=== PATIENT | male | born 1995 | race Caucasian/White ===

== ENCOUNTER 2023-01-22 09:56 | Emergency (ER) | payer OTHER, SELFPAY ==
--- NOTE | ~2023-01-22 | XR_ITS ---
EXAMINATION: XR SHOULDER, LEFT CLINICAL INFORMATION: Pain COMPARISON: None available. TECHNIQUE: AP external rotation, Grashey, scapular Y, and axillary views of the left shoulder. 4 views FINDINGS: The bones and soft tissues are normal. No fracture. Glenohumeral and acromioclavicular alignment is anatomic with normal joint space. No abnormal soft tissue calcifications. XR/XR shoulder LT min 2V IMPRESSION: No fracture or dislocation.
[2023-01-22 09:58] VITALS: BP 144/85; PULSE 80; RESP 18; TEMP 36.9; O2SAT 99; BMI 25.2
--- NOTE | 2023-01-22 11:05 | ED.EXTPRO ---
HPI - Extremity Problem General Chief complaint: Extremity Injury, Upper Stated complaint: L shoulder injury/ work injury Time Seen by Provider: 01/22/23 10:46 Source: patient Mode of arrival: ambulatory Limitations: no limitations History of Present Illness HPI Narrative: Patient is a 27-year-old [id number] male presenting to the emergency department with left anterior shoulder pain which began after coming home from work last night. Patient works at [email or web address] and is frequently lifting. States that he took Tylenol and ibuprofen last night with little relief, had difficulty sleeping related to the pain. Denies any radiation of pain down left arm. Denies any numbness or tingling to left arm or hand. Reports decreased range of motion with forward flexion, abduction, and external rotation. Denies any fall or other trauma. MD Complaint: joint pain Onset (ago): hour(s) Pain Consistency: constant Location: left Severity scale (1-10): 9 Quality: aching Radiation: none Relieving factors: rest Exacerbating factors: range of motion and palpation Associated symptoms: denies other symptoms Related Data Previous Rx's Medication Instructions Recorded cyclobenzaprine 5 mg tablet 5 mg PO TID PRN muscle spasm #12 01/22/23 tabs lidocaine 5 % topical patch 1 patch topical DAILY #15 ea 01/22/23 Allergies Allergy/AdvReac Type Severity Reaction Status Date / Time No Known Allergies Allergy Verified 01/22/23 10:03 Review of Systems Review of Systems: As per HPI. Yes all other systems are reviewed and are negative Constitutional: Constitutional: Reports as per HPI [facility] Social History Social History Advance Directives: No Advance Directives Information Provided: No Physical Exam Vital Signs: Vital Signs: Last Vital Signs Temp 98.5 F 01/22/23 09:58 Pulse 80 01/22/23 09:58 Resp 18 01/22/23 09:58 BP 144/85 H 01/22/23 09:58 Pulse Ox 99 01/22/23 09:58 O2 Del Method Room Air 01/22/23 09:58 BMI result Body Mass Index 25.2 Vital signs have been reviewed and appear to be correct. Blood pressure elevated. Heart rate normal. Respiratory rate normal. Temperature normal. Oxygen saturation normal. Const: General: cooperative, healthy appearing and no acute distress Orientation/consciousness: oriented to person, oriented to place, oriented to time and patient oriented x3 Limitations: no limitations HEENT: Head: Yes normocephalic and Yes atraumatic Ears: external ears normal General nose exam: Normal external nose present Face and sinus: Yes face symmetric Mouth: oropharynx normal and moist mucous membranes Throat: Yes uvula midline Eyes: Pupils: Equal, round and reactive pupils present Neck: Neck: Yes normal visual inspection and Yes supple Resp: Effort & Inspection: normal respiratory effort and able to speak in complete sentences Auscultation: clear to auscultation bilaterally Cardio: Rate: regular rate Rhythm: regular rhythm Heart sounds: S1 normal heart sound present and S2 normal heart sound present GI: Palpation (GI): Soft to palpation and nontender Auscultation: normoactive bowel sounds : General: Yes no CVA tenderness Back/Spine/Pelvis: Back: no CVA tenderness Skin: General skin exam: elasticity normal and turgor normal Neuro: General: oriented to person, oriented to place, oriented to time, patient oriented x3, tone normal, moves all extremities, Normal light touch and pain sensation, no focal motor deficits, CN's II-XI intact bilaterally and deep tendon reflexes 2+ bilaterally Cranial nerves: Yes Equal, round and reactive pupils present Cognition (Neuro): normal cognition Motor exam (neuro): 5/5 motor strength present throughout and Normal motor muscle tone present throughout Sensory Exam: Normal double simultaneous stimulation for sensation Extrem: General: Yes full ROM, Yes normal exam except as noted, Yes no pedal edema and Yes no calf tenderness Right upper extremity: normal capillary refill, no joint enlargement, shoulder/upper arm Details: normal to inspection, tenderness Location: of the A-C joint, axillary nerve sensory function normal and abnormal ROM Details: with range as follows (abduction to 90 degrees, forward flexion to 90 degrees, external rotation limited); no swelling and no ecchymosis and Extremity exam: right hand Details: neuromotor exam normal, neurosensory exam normal and vascular exam Details: radial pulse present and normal capillary refill Psych: Mental Status: mental status grossly normal Affect: normal affect Thought process: Normal thought process present Medical Decision Making Medical Decision Making MDM Narrative: Patient is a 27-year-old [id number] male presenting to the emergency department with left anterior shoulder pain which began after coming home from work last night. On exam patient is awake, A+Ox3, VS WNL, afebrile, normal neurological exam without focal deficits, tenderness to anterior left shoulder, limited ROM, neurovascularly intact distally, 5/5 strength. Given reported symptoms and physical exam findings, initial differential includes rotator cuff strain or tendinopathy. Do not suspect tear or adhesive capsulitis. X-ray notable for no acute abnormalities. My interpretation is in agreement with the radiologist's interpretation. Will prescribe cyclobenzaprine and lidocaine patches, advised patient to continue alternating Tylenol and ibuprofen, apply compresses of warm water with Epsom salt as patient does not have bathtub. Instructed patient to follow-up with primary care provider. Will refer patient to Orthopedics for any ongoing symptoms. Return precautions discussed at bedside. Patient verbalized understanding of and agreement with plan. Differential Diagnosis Differential Diagnoses: The differential diagnosis associated with the presentation includes As per MDM. Independent Interpretation I performed an independent interpretation of an: Plain X-Ray Interpretation: No acute abnormalities Radiology Impression Discussion of test interpretation with radiology: I have reviewed the radiologist's reading. Radiologist Impression: XR/XR shoulder LT min 2V IMPRESSION: No fracture or dislocation. External Record Review External record reviewed: Inpatient record, Office record and Outpatient record Prescription Management I considered prescription management with: Pain Medication and Other Discharge Plan Discharge Clinical Impression: Rotator cuff strain Patient Disposition: Home, Self-Care Instructions: Muscle Strain (DC), Rotator Cuff Injury (ED), Exercises for Shoulder Flexion and Extension (ED), Exercises for Internal and External Shoulder Rotation (ED), Exercises for Shoulder Abduction and Adduction (ED) Additional Instructions: You have been evaluated in the emergency department today for left shoulder pain. Your evaluation did not find evidence of medical conditions requiring emergent intervention at this time. Please rest and ice your shoulder, perform gentle stretching exercises several times daily, and resume normal activities as tolerated. We recommend you take 600mg ibuprofen every 6 hours or 650mg Tylenol every 6 hours as needed for pain. If needed you can alternate these medications as they take 1 medication every 3 hours. For instance at noon take ibuprofen, then at 3:00 p.m. take Tylenol, then at 6:00 p.m. take ibuprofen. You are also being prescribed cyclobenzaprine which is a muscle relaxer, you can take this medication every 8 hours as needed. You are being prescribed topical lidocaine patches which you can wear for up to 12 hours in a 24 hour period, do not apply heat directly over the patches. You can also apply compresses of warm water with Epsom salt to your shoulder several times daily. Please schedule an appointment for follow-up with your primary care provider this week. Return to the emergency department if you experience worsening pain, numbness, tingling, change of color in your arm/hand, or any other concerning symptoms. You can follow-up with orthopedics for any symptoms persisting beyond 1-2 weeks. Prescriptions: New cyclobenzaprine 5 mg tablet 5 mg PO TID PRN (Reason: muscle spasm) Qty: 12 0RF lidocaine 5 % adhesive patch,medicated 1 patch topical DAILY Qty: 15 0RF Rx Instructions: leave on most painful area for up to 12 hrs Referrals: [facility] [Provider Group]
== END 2023-01-22 12:34 | disposition home or self-care (01) ==
PROVIDERS: Emergency Provider Student in an Organized Health Care Education/Training Program; PCP Nurse Practitioner Family
DX: S46.012A Strain of muscle(s) and tendon(s) of the rotator cuff of left shoulder, initial encounter (principal); X50.0XXA Overexertion from strenuous movement or load, initial encounter; Y93.89 Activity, other specified; Y92.59 Other trade areas as the place of occurrence of the external cause; Y99.0 Civilian activity done for income or pay
CPT/HCPCS: 73030; 99282; 99283

== ENCOUNTER 2023-01-27 08:21 | Emergency (ER) | payer OTHER, SELFPAY ==
[2023-01-27 08:30] VITALS: BP 128/73; PULSE 78; RESP 12; TEMP 36.8; O2SAT 99; BMI 25.7
--- NOTE | 2023-01-27 08:57 | ED_ITS ---
HPI - Extremity Problem General Chief complaint: Extremity Problem Stated complaint: L shoulder injury/ work related Time Seen by Provider: 01/27/23 08:47 Source: patient Mode of arrival: ambulatory Limitations: no limitations History of Present Illness HPI Narrative: 27-year-old male presents with left shoulder pain. Symptoms started 3-4 days ago. They occurred at work. He was taking a tire off a car any developed left shoulder pain later that day. The pain is in the anterior shoulder. Radiates down his deltoid. There is no numbness, tingling or weakness. Pain is moderate to severe in nature. Denies any fevers or chills or joint swelling. Patient says the pain is achy and sore. Related Data Previous Rx's Medication Instructions Recorded cyclobenzaprine 5 mg tablet 5 mg PO TID PRN muscle spasm #12 01/22/23 tabs lidocaine 5 % topical patch 1 patch topical DAILY #15 ea 01/22/23 naproxen 500 mg tablet 500 mg PO BID #14 tabs 01/27/23 Allergies Allergy/AdvReac Type Severity Reaction Status Date / Time No Known Allergies Allergy Verified 01/22/23 10:03 Review of Systems Review of Systems: CONSTITUTIONAL: Denies weight loss, fever and chills. HEENT: Denies changes in vision and hearing. RESPIRATORY: Denies SOB and cough. CV: Denies palpitations no CP. GI: Denies abdominal pain, nausea, vomiting and diarrhea. : Denies dysuria and urinary frequency. MSK: + myalgia and joint pain. SKIN: Denies rash and pruritus. NEUROLOGICAL: Denies headache and syncope. PSYCHIATRIC: Denies recent changes in mood. Denies anxiety and depression. All other ROS are negative unless in HPI [facility] Social History Social History Advance Directives: No Physical Exam Vital Signs: Vital Signs: Last Vital Signs Temp 98.2 F 01/27/23 08:30 Pulse 78 01/27/23 08:30 Resp 12 01/27/23 08:30 BP 128/73 01/27/23 08:30 Pulse Ox 99 01/27/23 08:30 O2 Del Method Room Air 01/27/23 08:30 BMI result Body Mass Index 25.7 GEN: Well developed, no acute distress, alert, oriented HEENT: Normocephalic, atraumatic, normal external ears, nose appears normal Eyes: Normal to appearance Neck: Supple, no lymphadenopathy Respiratory: Talks in complete sentences, no respiratory distress Extremities: No clubbing cyanosis or edema , tenderness the anterior and lateral shoulder area, no joint swelling. Weakness with abduction, adduction, internal rotation, external rotation, limited range of motion secondary to pain. Neurovascularly intact Neurologic: No focal neurologic deficits, cranial nerves 2-12 intact, gait normal Skin: No rash Medical Decision Making Medical Decision Making MDM Narrative: patient presents with left shoulder pain. This is nontraumatic in nature. There is no indication for imaging at this time does there is unlikely to be a fracture. Patient may have a rotator cuff injury, strain, sprain, spasm. Will recommend patient be visited by Occupational Health for consideration of physical therapy. Will start patient on NSAIDs. Will provided no for 2 days of work cough. Differential Diagnosis Differential Diagnoses: The differential diagnosis associated with the presentation includes ( See above) Prescription Management I considered prescription management with: Pain Medication Discharge Plan Discharge Clinical Impression: Acute pain of left shoulder Patient Disposition: Home, Self-Care Instructions: Shoulder Pain (ED) Prescriptions: New naproxen 500 mg tablet 500 mg PO BID Qty: 14 0RF No Action cyclobenzaprine 5 mg tablet 5 mg PO TID PRN (Reason: muscle spasm) Qty: 12 0RF lidocaine 5 % adhesive patch,medicated 1 patch topical DAILY Qty: 15 0RF Rx Instructions: leave on most painful area for up to 12 hrs Referrals: [facility] [Provider Group]
--- NOTE | 2023-01-27 09:09 | PC.NURSE ---
Discharge plan reviewed with patient who verbalized understanding
== END 2023-01-27 09:09 | disposition home or self-care (01) ==
PROVIDERS: Emergency Provider Emergency Medicine; PCP Nurse Practitioner Family
DX: Z04.2 Encounter for examination and observation following work accident (principal); M25.512 Pain in left shoulder
CPT/HCPCS: 99282; 99283

== ENCOUNTER 2023-04-27 13:52 | Emergency (ER) | payer OTHER, SELFPAY ==
--- NOTE | ~2023-04-27 | XR_ITS ---
EXAMINATION: XR CHEST CLINICAL INFORMATION: Cough and shortness of breath COMPARISON: None available. TECHNIQUE: 2 views of the chest were obtained. FINDINGS: No significant abnormality is noted involving the heart, lungs, mediastinum, bony thorax or soft tissues. There is platelike atelectasis seen in the right upper lobe. XR/XR chest 2V IMPRESSION: No acute intrathoracic disease. Platelike atelectasis right upper lobe.
[2023-04-27 14:10] VITALS: BP 140/76; PULSE 92; RESP 17; TEMP 36.6; O2SAT 97; BMI 27.3
--- NOTE | 2023-04-27 14:10 | ED_ITS ---
HPI - General Adult General Chief complaint: Upper Respiratory Symptoms Stated complaint: Cough, difficulty breathing, headache Time Seen by Provider: 04/27/23 14:21 Source: patient Mode of arrival: ambulatory Limitations: no limitations History of Present Illness HPI narrative: Patient is a 27-year-old male presenting to the emergency department with complaint of shortness of breath and ongoing cough. States symptoms began last or Tuesday with sore throat and nasal congestion. Reports that his sore throat has since resolved but symptoms have progressed to cough and shortness of breath. Denies fevers. States that he was sent home from work today due to coughing. Denies chest pain or palpitations. complaint: Cough and shortness of breath Onset (ago): day(s) Location: chest Relieving factors: rest Exacerbating factors: movement Associated symptoms: denies other symptoms Treatments prior to arrival: none Related Data Previous Rx's Medication Instructions Recorded cyclobenzaprine 5 mg tablet 5 mg PO TID PRN muscle spasm #12 01/22/23 tabs lidocaine 5 % topical patch 1 patch topical DAILY #15 ea 01/22/23 naproxen 500 mg tablet 500 mg PO BID #14 tabs 01/27/23 albuterol sulfate 90 mcg/actuation 2 puff inhalation Q4-6H PRN 04/27/23 aerosol inhaler shortness of breath or wheezing #6.7 grams benzonatate 100 mg capsule 100 mg PO TID PRN cough #20 caps 04/27/23 prednisone 20 mg tablet 40 mg (2 x 20 mg) PO DAILY #10 tabs 04/27/23 Allergies Allergy/AdvReac Type Severity Reaction Status Date / Time No Known Allergies Allergy Verified 04/27/23 14:10 Review of Systems Review of Systems: As per HPI. Yes all other systems are reviewed and are negative Constitutional: Constitutional: Reports as per HPI [facility] Social History Social History Smoked in Last 30 Days: No Use of substances other than those prescribed or required for medical reasons: Yes Substance Use Type: Marijuana Advance Directives: No Advance Directives Information Provided: No Physical Exam ED Vital Signs: Vital Signs - 24 hr 04/27/23 14:10 04/27/23 14:23 Temperature 98 F Pulse Rate 92 89 Respiratory Rate 17 18 Blood Pressure 140/76 H 156/79 H Pulse Oximetry 97 98 Oxygen Delivery Method Room Air Room Air BMI result Body Mass Index 27.3 Vital signs have been reviewed and appear to be correct. Blood pressure elevated. Heart rate normal. Respiratory rate normal. Temperature normal. Oxygen saturation normal. Const General: cooperative, healthy appearing and no acute distress Orientation/consciousness: oriented to person, oriented to place, oriented to time and patient oriented x3 Limitations: no limitations HENMT Head: Yes normocephalic and Yes atraumatic Ears: external ears normal General nose exam: Normal external nose present Face and sinus: Yes face symmetric Mouth: oropharynx normal and moist mucous membranes Throat: Yes uvula midline Eyes Pupils: Equal, round and reactive pupils present Neck Neck: Yes normal visual inspection and Yes supple Resp Effort & Inspection: normal respiratory effort and able to speak in complete sentences Auscultation: clear to auscultation bilaterally and wheezes scattered wheezes Cardio Rate: regular rate Rhythm: regular rhythm Heart sounds: S1 normal heart sound present and S2 normal heart sound present GI Palpation (GI): Soft to palpation and nontender Auscultation: normoactive bowel sounds General: Yes no CVA tenderness Back/Spine/Pelvis Back: no CVA tenderness Skin General skin exam: elasticity normal and turgor normal Neuro General: oriented to person, oriented to place, oriented to time, patient oriented x3, moves all extremities, no focal motor deficits and CN's II-XI intact bilaterally Cranial nerves: Yes Equal, round and reactive pupils present Cognition (Neuro): normal cognition Extrem General: Yes full ROM, Yes no pedal edema and Yes no calf tenderness Psych Mental Status: mental status grossly normal Affect: normal affect Thought process: Normal thought process present Course Course Course Narrative: This is an RME: Additional HPI, ROS, PE not included below will be deferred to primary provider. This is a [id number], with no known medical hx, presenting to the emergency department with a complaint of cough, congestion and SOB x 4 days. Girlfriend is sick with similar symptoms. No history of asthma. Plan: Viral swabs, chest x-ray Medical Decision Making Medical Decision Making MDM Narrative: Patient is a 27-year-old male presenting to the emergency department with complaint of shortness of breath and ongoing cough. On exam patient is awake, A+Ox3, VS WNL, afebrile, normal neurological exam without focal deficits, physical exam findings as above. Given reported symptoms and physical exam findings, initial differential includes viral illness, COVID, flu, RSV, bronchitis, pneumonia. Swab positive for RSV. X-ray notable for no acute disease. My interpretation is in agreement with the radiologist's interpretation. Will treat patient with course of prednisone, benzonatate, albuterol inhaler. Instructed patient to follow-up with primary care provider. Return precautions discussed at bedside. Patient verbalized understanding of and agreement with plan. Differential Diagnosis Differential Diagnoses: The differential diagnosis associated with the presentation includes As per [facility]. Lab Data [facility] Lab Attestation statement: I reviewed the patient's lab results. As per [facility]. Labs: Lab Results 04/27/23 Range/Units 14:26 Influenza Type A (PCR) NEGATIVE (Negative) Influenza Type B (PCR) NEGATIVE (Negative) RSV RNA Qual (PCR) POSITIVE A (Negative) SARS-CoV-2 RNA (RT-PCR) NEGATIVE (Negative) Independent Interpretation I performed an independent interpretation of an: Plain X-Ray Interpretation: No acute disease. Radiology Impression Discussion of test interpretation with radiology: I have reviewed the radiologist's reading. Radiologist Impression: XR/XR chest 2V IMPRESSION: No acute intrathoracic disease. Platelike atelectasis right upper lobe. External Record Review External record reviewed: Inpatient record, Office record and Outpatient record Prescription Management I considered prescription management with: Other Discharge Plan Discharge Clinical Impression: RSV infection Patient Disposition: Home, Self-Care Instructions: Respiratory Syncytial Virus (ED) Additional Instructions: You were evaluated in the emergency department today for cough and shortness of breath. You tested positive for RSV which is a respiratory virus. This virus should resolve on its own with time and rest. You should ensure adequate fluid intake. You are being treated with a short course of steroids to decrease inflammation. You are being prescribed an inhaler which you can use every 4-6 hours as needed for shortness of breath. You are being prescribed cough medicine which you can use every 8 hours as needed. Please follow-up with your primary care provider this week. Return to the emergency department if you develop worsening shortness of breath, difficulty breathing, chest pain, fever not improved with Tylenol or ibuprofen, or any other concerning symptoms. Prescriptions: New prednisone 20 mg tablet 40 mg PO DAILY Qty: 10 0RF benzonatate 100 mg capsule 100 mg PO TID PRN (Reason: cough) Qty: 20 0RF albuterol sulfate 90 mcg/actuation HFA aerosol inhaler 2 puff inhalation Q4-6H PRN (Reason: shortness of breath or wheezing) Qty: 6.7 0RF No Action cyclobenzaprine 5 mg tablet 5 mg PO TID PRN (Reason: muscle spasm) Qty: 12 0RF lidocaine 5 % adhesive patch,medicated 1 patch topical DAILY Qty: 15 0RF Rx Instructions: leave on most painful area for up to 12 hrs naproxen 500 mg tablet 500 mg PO BID Qty: 14 0RF
[2023-04-27 14:23] VITALS: BP 156/79; PULSE 89; RESP 18; O2SAT 98
--- NOTE | 2023-04-27 14:28 | PC.NURSE ---
swabs obtained and sent to lab.
--- NOTE | 2023-04-27 14:33 | PC.NURSE ---
pt to xray at this time
[2023-04-27 15:09] LABS: Influenza A PCR NEGATIVE (Negative); Influenza B PCR NEGATIVE (Negative); Resp Syncy Virus RNA Qual PCR POSITIVE (Negative); SARS COV2 PCR INHOUSE NEGATIVE (Negative)
== END 2023-04-27 15:43 | disposition home or self-care (01) ==
PROVIDERS: Physician Assistant Medical; Emergency Provider Emergency Medicine
DX: J22 Unspecified acute lower respiratory infection (principal); R05.9 Cough, unspecified; R51.9 Headache, unspecified; R06.02 Shortness of breath; Z20.822 Contact with and (suspected) exposure to COVID-19; Z20.828 Contact with and (suspected) exposure to other viral communicable diseases
CPT/HCPCS: 0241U; 71046; 99283; 99284

== ENCOUNTER 2023-11-17 14:11 | Emergency (ER) | payer OTHER, SELFPAY ==
--- NOTE | 2023-11-17 14:25 | ED.GENADULT ---
HPI - General Adult General Chief complaint: Abdominal Pain Stated complaint: Vomiting, dizziness Time Seen by Provider: 11/17/23 17:59 Source: patient Mode of arrival: ambulatory History of Present Illness ED Provider: andreea VIDES narrative: Patient otherwise healthy had Burrito at 19:00 by mid night started having nausea vomiting and diarrhea had about 4 times watery stool and about 8 times no fever no chills no other family member sick no fever no chills feels body ache high generalized abdominal discomfort Related Data Previous Rx's ?Medication ?Instructions ?Recorded cyclobenzaprine 5 mg tablet 5 mg PO TID PRN muscle spasm #12 01/22/23 tabs lidocaine 5 % topical patch 1 patch topical DAILY #15 ea 01/22/23 naproxen 500 mg tablet 500 mg PO BID #14 tabs 01/27/23 albuterol sulfate 90 mcg/actuation 2 puff inhalation Q4-6H PRN 04/27/23 aerosol inhaler shortness of breath or wheezing #6.7 grams benzonatate 100 mg capsule 100 mg PO TID PRN cough #20 caps 04/27/23 prednisone 20 mg tablet 40 mg (2 x 20 mg) PO DAILY #10 tabs 04/27/23 dicyclomine 20 mg tablet 20 mg PO TID #15 tabs 11/17/23 ondansetron 4 mg disintegrating 4 mg PO Q6-8H PRN nausea and 11/17/23 tablet vomiting #10 tabs Allergies Allergy/AdvReac Type Severity Reaction Status Date / Time No Known Allergies Allergy Verified 11/17/23 14:28 Review of Systems Review of Systems: Yes all other systems are reviewed and are negative [facility] Social History Social History Smoked in Last 30 Days: No Use of substances other than those prescribed or required for medical reasons: Yes Substance Use Type: Marijuana Advance Directives: No Advance Directives Information Provided: No Physical Exam ED Vital Signs: Vital Signs - 24 hr 11/17/23 14:26 11/17/23 18:00 11/17/23 19:01 Temperature 97.3 F 99.8 F 98.4 F Pulse Rate 87 81 70 Respiratory Rate 18 18 Blood Pressure 144/56 H 114/59 L Pulse Oximetry 99 97 99 Oxygen Delivery Method Room Air Room Air Room Air 11/17/23 20:15 Temperature 98.4 F Pulse Rate 70 Respiratory Rate 18 Blood Pressure 114/59 L Pulse Oximetry 99 Oxygen Delivery Method Room Air BMI result Body Mass Index 23.0 Appearance: Alert. Oriented X3. No acute distress. Eyes: PERRLA, No Nystagmus ENT: Pharynx normal. Oral Mucosa moist Neck: Normal inspection. Neck supple. CVS: Normal heart rate and rhythm. Pulses normal. Respiratory: No respiratory distress. Equal air entry bilateral, no wheezing/rales/rhonchi Abdomen: Soft and mild diffuse tenderness no rebound tenderness or guarding Bowel sounds are present, no mass palpable, no CVA tenderness Skin: Skin warm and dry. Normal skin color. Normal skin turgor. Extremities: No lower extremity edema. No calf tenderness Neuro: Oriented X 3. No motor deficit. No sensory deficit.No cerebellar signs , cranial nerves II-XII intact Course Course Course Narrative: This is a Rapid Medical Exam performed in triage by Malorie Tucker PA-C. Full HPI, ROS and PE to be performed by primary ED provider. 27 year-old M w/no sig PMHx presenting to the ED c/o abdominal pain w/nausea, vomiting & diarrhea s/p eating burrito yesterday. Reports sx since midnight with inability to tolereate PO or sleep. Also reports some room spinning dizziness. denies others w/similar sx PE: abdomen soft nontender, ambulating with steady gait, appears uncomfortable Plan: EKG, Labs, UA ordered, Zofran given in triage Medications Administered Discontinued Medications Generic Name Dose Route Start Last Admin Trade Name Freq PRN Reason Stop Dose Admin Dicyclomine HCl 20 mg 11/17/23 18:46 11/17/23 19:01 Dicyclomine Hcl 10 Mg Capsule PO 11/17/23 18:47 20 mg ONCE ONE Administration Ondansetron HCl 4 mg 11/17/23 14:30 11/17/23 14:32 Ondansetron Odt 4 Mg Tab.Rapdis TRANSLINGU 11/17/23 14:31 4 mg ONCE ONE Administration Medical Decision Making Medical Decision Making [facility] Narrative: Patient likely had Clostridium perfringens infection which is self-limited improved after p.o. fluids and Zofran better patient home Differential Diagnosis Differential Diagnoses: The differential diagnosis associated with the presentation includes Food poisoning/Clostridium perfringens/gastroenteritis Lab Data [facility] Lab Attestation statement: I reviewed the patient's lab results. 11/17/23 15:18 11/17/23 15:18 Labs: Lab Results 11/17/23 11/17/23 Range/Units 15:18 18:41 WBC 8.4 (4.8-10.8) X10*3/uL RBC 5.29 (4.60-5.80) X10*6/uL Hgb 15.3 (14.0-18.0) g/dl Hct 42.7 (42.0-52.0) % MCV 80.7 (80.0-98.0) fL MCH 28.9 (27.0-33.0) pg MCHC 35.8 (31.0-36.0) g/dl RDW 13.2 (11.0-16.0) % Plt Count 230 (160-400) X10*3/uL MPV 10.0 (9.4-12.4) fL Immature Gran % (Auto) 0.2 (0.0-0.4) % Neut % (Auto) 86.7 H (45-73) % Lymph % (Auto) 9.8 L (20-40) % [place] % (Auto) 3.1 (2-11) % Eos % (Auto) 0.0 (0-4) % Baso % (Auto) 0.2 (0-2) % Lymph # (Auto) 0.8 L (1.2-4.9) X10*3/uL [place] # (Auto) 0.3 (0.1-1.2) X10*3/uL Eos # (Auto) 0.0 (0.0-0.4) X10*3/uL Baso # (Auto) 0.0 (0.0-0.2) X10*3/uL Abs Immat Gran (auto) 0.02 (0.00-0.03) X10*3/uL Absolute Neuts (auto) 7.3 (2.0-8.3) x10*3/uL Absolute Nucleated RBC 0.000 (0.0-0.012) X10*3/uL Nucleated RBC % (auto) 0.0 (0.0-0.2) /100WBC Sodium 139 (135-145) mmol/L Potassium 3.4 (3.3-5.1) mmol/L Chloride 102 (96-108) mmol/L Carbon Dioxide 20 L (22-29) mmol/L Anion Gap 20 (12-20) BUN 18 H (9-16) mg/dL Creatinine 0.97 (0.5-1.4) mg/dL Estim Creat Clear Calc 118.5 Estimated GFR > 60 Random Glucose 131 H (60-115) mg/dL Calcium 10.2 (8.4-10.2) mg/dL Magnesium 1.9 (1.6-2.6) mg/dL Total Bilirubin 1.0 (0.0-1.0) mg/dL Direct Bilirubin 0.3 (0.0-0.5) mg/dL AST 33 (5-37) U/L ALT 36 (0-40) U/L Alkaline Phosphatase 60 (39-117) U/L Total Protein 8.4 H (6.5-8.0) g/dL Albumin 5.3 H (3.5-5.0) g/dL Lipase 23 (8-78) U/L Urine Color Yellow Urine Appearance Clear Urine pH 6.0 (5.0-9.0) Ur Specific [place] >= 1.030 H (1.005-1.025) Urine Protein 300 (3+) H (Neg-Trace) mg/dL Urine Glucose (UA) Negative (Negative) mg/dL Urine Ketones >=160 (Negative) mg/dL Urine Blood Negative (Negative) Urine Nitrite Negative (Negative) Ur Leukocyte Esterase Negative (Negative) Urine RBC 0-2 (0-2) /HPF Urine WBC 0-5 (0-5) /HPF Ur Squamous Epith Cells 0-2 (0-2) /HPF Urine Bacteria None Seen (None Seen) Hyaline Casts 0-2 (0-2) /LPF Discharge Plan Discharge Clinical Impression: Food poisoning due to clostridium perfringens Patient Disposition: Home, Self-Care Instructions: Food Poisoning (ED) Additional Instructions: Drink plenty of fluids Medicine for nausea as prescribed Follow with your PCP if not better Prescriptions: New ondansetron 4 mg tablet,disintegrating 4 mg PO Q6-8H PRN (Reason: nausea and vomiting) Qty: 10 0RF dicyclomine 20 mg tablet 20 mg PO TID Qty: 15 0RF No Action cyclobenzaprine 5 mg tablet 5 mg PO TID PRN (Reason: muscle spasm) Qty: 12 0RF lidocaine 5 % adhesive patch,medicated 1 patch topical DAILY Qty: 15 0RF Rx Instructions: leave on most painful area for up to 12 hrs prednisone 20 mg tablet 40 mg PO DAILY Qty: 10 0RF benzonatate 100 mg capsule 100 mg PO TID PRN (Reason: cough) Qty: 20 0RF albuterol sulfate 90 mcg/actuation HFA aerosol inhaler 2 puff inhalation Q4-6H PRN (Reason: shortness of breath or wheezing) Qty: 6.7 0RF naproxen 500 mg tablet 500 mg PO BID Qty: 14 0RF Stand Alone Forms: Work/School Release Interventions: ED Discharge Assessment Last Done: 11/17/23 20:15 Discharge Date/Time: 11/17/23 20:16 Print Language: Armenian
[2023-11-17 14:26] VITALS: BP 144/56; PULSE 87; RESP 18; TEMP 36.3; O2SAT 99; BMI 23.0
--- NOTE | 2023-11-17 14:30 | ECG_ITS ---
Test Reason : DIZINESS Blood Pressure : / mmHG Vent. Rate : 083 BPM Atrial Rate : 083 BPM P-R Int : 154 ms QRS Dur : 098 ms QT Int : 424 ms P-R-T Axes : 075 052 050 degrees QTc Int : 498 ms Normal sinus rhythm Biatrial enlargement RSR' or QR pattern in V1 suggests right ventricular conduction delay Prolonged QT Abnormal ECG No previous ECGs available Referred By: Malorie Tucker Electronically Signed By:Helder Medina
[2023-11-17] MEDS: Ondansetron ODT 4 MG TAB.RAPDIS TRANSLINGU (14:32)
[2023-11-17 15:22] LABS: MANUAL DIFF FLAG NO
[2023-11-17 15:24] LABS: Basophils Percent Auto 0.2 % (0-2); Hematocrit 42.7 % (42.0-52.0); Hemoglobin 15.3 g/dl (14.0-18.0); Imm Gran Abs Auto 0.02 X10*3/uL (0.00-0.03); Imm Gran Pct Auto 0.2 % (0.0-0.4); Lymphocytes Absolute Auto 0.8 X10*3/uL (1.2-4.9); Lymphocytes Percent Auto 9.8 % (20-40); Mean Corpuscular HGB Conc 35.8 g/dl (31.0-36.0); Mean Corpuscular Hemoglobin 28.9 pg (27.0-33.0); Mean Corpuscular Volume 80.7 fL (80.0-98.0); Monocytes Absolute Auto 0.3 X10*3/uL (0.1-1.2); Monocytes Percent Auto 3.1 % (2-11); Neutrophils Absolute Auto 7.3 x10*3/uL (2.0-8.3); Neutrophils Percent Auto 86.7 % (45-73); Platelet Count 230 X10*3/uL (160-400); Red Blood Count 5.29 X10*6/uL (4.60-5.80); Red Cell Distribution Width 13.2 % (11.0-16.0); White Blood Count 8.4 X10*3/uL (4.8-10.8)
[2023-11-17 15:37] LABS: Alanine Aminotransferase 36 U/L (0-40); Albumin Level 5.3 g/dL (3.5-5.0); Alkaline Phosphatase 60 U/L (39-117); Anion Gap 20 (12-20); Aspartate Amino Transferase 33 U/L (5-37); Bilirubin Direct 0.3 mg/dL (0.0-0.5); Blood Urea Nitrogen 18 mg/dL (9-16); Calcium 10.2 mg/dL (8.4-10.2); Carbon Dioxide 20 mmol/L (22-29); Chloride 102 mmol/L (96-108); Creatinine Clr Calc Pharmacy 118.5; Estimated Glomerular Filt Rate > 60; Glucose Random 131 mg/dL (60-115); Lipase 23 U/L (8-78); Magnesium 1.9 mg/dL (1.6-2.6); Potassium 3.4 mmol/L (3.3-5.1); Sodium 139 mmol/L (135-145); Total Protein 8.4 g/dL (6.5-8.0)
[2023-11-17 18:00] VITALS: BP 114/59; PULSE 81; TEMP 37.7; O2SAT 97
--- NOTE | 2023-11-17 18:41 | PC.NURSE ---
pt po challenged by dr euceda. says he has no pain, and has not vomited since this morning. he says his stomach feels weird
[2023-11-17 18:49] LABS: Appearance Urine Clear; Color Urine Yellow; Glucose Urine UA Negative (Negative); Leukocyte Esterase Urine Negative (Negative); Nitrite Urine Negative (Negative); Specific Gravity - Urine >= 1.030 (1.005-1.025); UMIC TRIGGER UACC YES; Urine Blood Negative (Negative); Urine Ketones >=160 mg/dL (Negative); Urine Protein 300 (3+) mg/dL (Neg-Trace)
[2023-11-17 18:54] LABS: Bacteria Urine None Seen (None Seen); Hyaline Casts Urine 0-2 /LPF (0-2); RBC Urine 0-2 /HPF (0-2); Squamous Epithelial Cell Urine 0-2 /HPF (0-2); WBC Urine 0-5 /HPF (0-5)
[2023-11-17 19:01] VITALS: PULSE 70; RESP 18; TEMP 36.9; O2SAT 99
[2023-11-17] MEDS: Dicyclomine HCl 10 MG CAPSULE 20 MG PO (19:01)
[2023-11-17 20:15] VITALS: BP 114/59; PULSE 70; RESP 18; TEMP 36.9; O2SAT 99
== END 2023-11-17 20:16 | disposition home or self-care (01) ==
PROVIDERS: Physician Assistant; Emergency Provider Internal Medicine
DX: A05 Other bacterial foodborne intoxications, not elsewhere classified (principal); R11.2 Nausea with vomiting, unspecified; R19.7 Diarrhea, unspecified
CPT/HCPCS: 36415; 80048; 80076; 81001; 83690; 83735; 85025; 93005; 99283; 99284

== ENCOUNTER → 2023-11-17 14:30 | Outpatient (BNV) | payer SELFPAY | PROVIDERS: Emergency Provider Internal Medicine; Visit Provider Internal Medicine Cardiovascular Disease | DX: R42 Dizziness and giddiness (principal); I51.7 Cardiomegaly; R94.31 Abnormal electrocardiogram [ECG] [EKG] | CPT/HCPCS: 93010 ==

== ENCOUNTER 2024-09-06 08:24 | Outpatient (REF) | payer BC, SELFPAY ==
[2024-09-06 14:25] LABS: Influenza A PCR NEGATIVE (Negative); Influenza B PCR NEGATIVE (Negative); Resp Syncy Virus RNA Qual PCR NEGATIVE (Negative); SARS COV2 PCR INHOUSE NEGATIVE (Negative)
== END 2024-09-06 08:25 | disposition home or self-care (01) ==
LOC: HO.LAB 08:24
PROVIDERS: Visit Provider Nurse Practitioner Family
DX: J06.9 Acute upper respiratory infection, unspecified (principal)
CPT/HCPCS: 0241U

== ENCOUNTER 2024-09-06 08:24 | Outpatient (AMB) | payer BC, SELFPAY ==
[2024-09-06 08:51] VITALS: BP 110/60; PULSE 70; TEMP 37; O2SAT 98; BMI 23.0
--- NOTE | 2024-09-06 08:51 | AM.OFFWIN_ITS ---
Intake Vital Signs 09/06/24 08:51 Height 5 ft 10 in Weight 160 lb BMI 23.0 BP 110/60 Blood Pressure Location Lt brachial Position Sitting Pulse 70 Pulse Source Pulse Oximeter Temp 98.6 F Temp Source Oral Pulse Oximetry (%) 98 Oxygen Delivery Method Room Air Intake Visit Reasons: EP Fever, cough, congestion Patient Tobacco Use Status: Never used Tobacco Allergies No Known Allergies Allergy (Verified 09/06/24 08:51) Do you need a note to return to daycare/school/sports/work: Yes HPI HPI Comments History of Present Illness Details 28 y/o Male patient who presents to the walk in clinic with c/o URI symptoms since Tuesday. Pt reports Cough, Chest Congestion and Subjective Fevers. [facility] Medical History (Updated 09/06/24 @ 09:17 by Delphine Will NP) Acute respiratory disease Social History Patient Tobacco Use Status: Never used Tobacco Substance Use Type: Marijuana Review of Systems Const All systems reviewed & are unremarkable except as noted in HPI and below Physical Exam Vital Signs: Last Vital Signs Temp 98.6 F 09/06/24 08:51 Pulse 70 09/06/24 08:51 BP 110/60 09/06/24 08:51 Pulse Ox 98 09/06/24 08:51 Oxygen Delivery Method Room Air 09/06/24 08:51 BMI result Body Mass Index 23.0 Const General: no acute distress; No comfortable Orientation/consciousness: patient oriented x3 HEENT Head: Yes normocephalic Ears: external ears normal and TM abnormal bulging and with fluid behind the TM bilateral General nose exam: Normal external nose present and Nasal discharge present Face and sinus: Yes sinuses nontender Mouth: moist mucous membranes Throat: Yes posterior oropharynx normal Resp Effort & Inspection: normal respiratory effort and able to speak in complete sentences Auscultation: clear to auscultation bilaterally, no crackles, no rales, no rhonchi and no wheezes Cardio Rhythm: regular rhythm Heart sounds: S1 normal heart sound present and S2 normal heart sound present Neuro General: patient oriented x3 Assessment & Plan Assessment & Plan (1) Acute respiratory disease: Code(s): J06.9 - Acute upper respiratory infection, unspecified Plan: Ordered SARs OTC cold/cough remedies Acetaminophen for pain relief. Orders: Orders SARS-CoV2/FLU/RSV Today J06.9 - Acute upper respiratory infection, unspecified Medications: New benzonatate 200 mg (2 x 100 mg) PO BID 60 caps 0RF cough J06.9 - Acute upper respiratory infection, unspecified pseudoephedrine HCl ER (Sudafed 12 Hour) 120 mg PO Q12H 30 tabs 0RF Nasal congestion J06.9 - Acute upper respiratory infection, unspecified Discontinued lidocaine 5% leave on most painful area for up to 12 hrs Discontinued Reason: Patient Completed Course 1 patch topical DAILY 15 ea 0RF albuterol sulfate 90 mcg/actuation Discontinued Reason: Patient Completed Course 2 puffs inhalation Q4-6H PRN 6.7 grams 0RF shortness of breath or wheezing benzonatate Discontinued Reason: Patient Completed Course 100 mg PO TID PRN 20 caps 0RF cough cyclobenzaprine Discontinued Reason: Patient Completed Course 5 mg PO TID PRN 12 tabs 0RF muscle spasm naproxen Discontinued Reason: Patient Completed Course 500 mg PO BID 14 tabs 0RF prednisone Discontinued Reason: Patient Completed Course 40 mg (2 x 20 mg) PO DAILY 10 tabs 0RF ondansetron Discontinued Reason: Patient Completed Course 4 mg PO Q6-8H PRN 10 tabs 0RF nausea and vomiting dicyclomine Discontinued Reason: Patient Completed Course 20 mg PO TID 15 tabs 0RF Coding Level of Care Code Est Pt Level 4 (65791) Diagnoses Acute respiratory disease J06.9 Time Spent (min) 20
== END 2024-09-06 10:19 | disposition home or self-care (01) ==
PROVIDERS: Visit Provider Nurse Practitioner Family
DX: J06.9 Acute upper respiratory infection, unspecified (principal)

== ENCOUNTER 2024-11-13 22:59 | Emergency (ER) | payer BC, SELFPAY ==
[2024-11-13 23:26] VITALS: BP 126/48; PULSE 96; RESP 20; TEMP 37.2; O2SAT 100; BMI 24.1
--- NOTE | 2024-11-13 23:29 | ED_ITS ---
HPI - Nausea/Vomiting/Diarrhea General Chief complaint: Nausea/Vomiting/Diarrhea Stated complaint: abd pain/vomiting Time Seen by Provider: 11/14/24 00:04 Source: patient Mode of arrival: ambulatory Limitations: no limitations History of Present Illness ED Provider: Dr. Dang Billy HPI Narrative: Previously healthy 28-year-old male presenting with nausea, vomiting and diarrhea ongoing since yesterday. Patient admits that he ate at a [place] restaurant on Tuesday and subsequently developed nausea vomiting and diarrhea the following morning. Has been unable to keep any food down over the last 24 hours. No hematemesis or hematochezia. No known sick contacts. No other questionable food intake. Denies fever, chest pain or difficulty breathing. Does have some crampy upper abdominal pain that feels like clenching . Had been feeling well prior to this. Related Data Previous Rx's ?Medication ?Instructions ?Recorded benzonatate 100 mg capsule 200 mg (2 x 100 mg) PO BID cough 09/06/24 #60 caps pseudoephedrine HCl 120 mg 120 mg PO Q12H Nasal congestion 09/06/24 tablet,extended release (Sudafed #30 tabs 12 Hour) dicyclomine 20 mg tablet 20 mg PO BID #10 tabs 11/14/24 metoclopramide HCl 10 mg tablet 10 mg PO Q6H PRN nausea and 11/14/24 (Reglan) vomiting #10 tabs Allergies Allergy/AdvReac Type Severity Reaction Status Date / Time No Known Allergies Allergy Verified 11/13/24 23:28 Review of Systems 2 Review of Systems: Yes all other systems are reviewed and are negative PMFSH Past Medical History Attestation statement: The following information was validated with the patient. Medical History (Updated 11/14/24 @ 02:11 by Dang Billy DO) Acute respiratory disease Social History Social History Patient Tobacco Use Status: Never used Tobacco Substance Use Type: Marijuana Advance Directives: No Do you have a plan to hurt others: No Plan Physical Exam 2 Vital Signs: Vital Signs: Last Vital Signs Temp 97.9 F 11/14/24 02:01 Pulse 80 11/14/24 02:01 Resp 20 11/14/24 02:01 BP 115/47 L 11/14/24 02:01 Pulse Ox 97 06/18/25 02:01 O2 Del Method Room Air 11/14/24 02:01 BMI result Body Mass Index 24.1 GENERAL: Ill-Appearing, appears uncomfortable. SKIN: Normal skin color for ethnicity, warm, dry, no rashes noted. HEENT: Normocephalic, atraumatic, no stridor, dry mucous membranes, dentition intact, EOMI, PERRLA. NECK: Soft, supple, full ROM, midline structures nontender, no step-offs, no deformities, no lymphadenopathy. CHEST: Heart regular tachycardia, no murmurs, symmetric chest rise and fall. PULMONARY: Clear to auscultation bilaterally, diminished at the bases, no labored breathing, no wheezes/rhales/rhonchi. ABDOMINAL: Soft, nondistended, nontender, positive bowel sounds in all quadrants. : Deferred. MUSCULOSKELETAL: Normal tone, full range of motion, no deformities, no peripheral edema. NEURO: Alert and oriented x3, CN II through XII intact, equal strength and sensation bilateral upper and lower extremities, no focal neurologic deficits. PSYCHIATRIC: Flat affect, fluid speech, good eye contact and appropriate demeanor. Course Course Course Narrative: 28 yo male with no PMH who notes 2 days of n/v/d he has periumbilical abdominal pain. On Tuesday he went to a [employer] restaurant and the next day he has pain, n/v/d. He denies fevers. He denies black or bloody stools. NO recent travel or abx use. At this time labs and IM reglan ordered. He tried zofran at home with no relief. this is a RAPID medical screening exam the rest of the history and physical exam is to be done by the main provider. TEVIN 11/13/24 1130pm Medications Administered Discontinued Medications Generic Name Dose Route Start Last Admin Trade Name Freq PRN Reason Stop Dose Admin Lactated Ringer's 1,000 mls @ 999 mls/hr 11/13/24 23:58 11/14/24 02:07 Lr IV 11/14/24 00:58 Infused .Q1H1M ONE Infusion Metoclopramide HCl 10 mg 11/13/24 23:28 11/13/24 23:35 Metoclopramide Hcl 10 Mg/2 Ml Vial IM 11/13/24 23:29 10 mg ONCE ONE Administration Medical Decision Making Medical Decision Making [facility] Narrative: Patient presents today with a chief complaint of vomiting. Differential diagnosis includes surgical emergency such as obstruction or enteritis, as well as hyperglycemia, acidosis, food or drug ingestion, pancreatitis, CVA, allergic reaction such as anaphylaxis, cannabis hyperemesis syndrome or cyclic vomiting syndrome, among many others. Patient is not showing signs of acute dehydration or hemodynamic instability. They are having associated abdominal pain. Broad-based work-up was initiated based on above history and physical exam. 2:15 a.m. patient feeling improved after antiemetics, IV fluids. Requesting discharge home. Using shared decision making, plan for discharge home to follow-up with primary care and/or specialist. Patient understands and agrees with plan for discharge. Discharged home in stable condition. Differential Diagnosis Differential Diagnoses: The differential diagnosis associated with the presentation includes ( See above) Admission/Observation Consideration of admission/observation: Escalation of care including admission/observation considered Lab Data [facility] Lab Attestation statement: I reviewed the patient's lab results. 11/13/24 23:37 11/13/24 23:37 Labs: Lab Results 11/13/24 11/13/24 Range/Units 23:36 23:37 WBC 11.7 H (4.8-10.8) X10*3/uL RBC 5.64 (4.60-5.80) X10*6/uL Hgb 16.0 (14.0-18.0) g/dl Hct 44.6 (42.0-52.0) % MCV 79.1 L (80.0-98.0) fL MCH 28.4 (27.0-33.0) pg MCHC 35.9 (31.0-36.0) g/dl RDW 13.4 (11.0-16.0) % Plt Count 225 (160-400) X10*3/uL MPV 10.0 (9.4-12.4) fL Immature Gran % (Auto) 0.3 (0.0-0.4) % Neut % (Auto) 77.5 H (45-73) % Lymph % (Auto) 14.4 L (20-40) % [place] % (Auto) 7.6 (2-11) % Eos % (Auto) 0.0 (0-4) % Baso % (Auto) 0.2 (0-2) % Lymph # (Auto) 1.7 (1.2-4.9) X10*3/uL [place] # (Auto) 0.9 (0.1-1.2) X10*3/uL Eos # (Auto) 0.0 (0.0-0.4) X10*3/uL Baso # (Auto) 0.0 (0.0-0.2) X10*3/uL Abs Immat Gran (auto) 0.03 (0.00-0.03) X10*3/uL Absolute Neuts (auto) 9.0 H (2.0-8.3) x10*3/uL Absolute Nucleated RBC 0.000 (0.0-0.012) X10*3/uL Nucleated RBC % (auto) 0.0 (0.0-0.2) /100WBC Sodium 139 (135-145) mmol/L Potassium 3.5 (3.3-5.1) mmol/L Chloride 103 (96-108) mmol/L Carbon Dioxide 22 (22-29) mmol/L Anion Gap 18 (12-20) BUN 17 H (9-16) mg/dL Creatinine 1.05 (0.5-1.4) mg/dL Estim Creat Clear Calc 98.8 Estimated GFR > 60 Random Glucose 116 H (60-115) mg/dL Calcium 10.3 H (8.4-10.2) mg/dL Magnesium 1.8 (1.6-2.6) mg/dL Total Bilirubin 1.4 H (0.0-1.0) mg/dL Direct Bilirubin 0.4 (0.0-0.5) mg/dL AST 70 H (5-37) U/L ALT 51 H (0-40) U/L Alkaline Phosphatase 64 (39-117) U/L Total Protein 8.1 H (6.5-8.0) g/dL Albumin 5.4 H (3.5-5.0) g/dL Influenza Type A (PCR) NEGATIVE (Negative) Influenza Type B (PCR) NEGATIVE (Negative) RSV RNA Qual (PCR) NEGATIVE (Negative) SARS-CoV-2 RNA (RT-PCR) NEGATIVE (Negative) Discharge Plan Discharge Clinical Impression: Gastroenteritis Patient Disposition: Home, Self-Care Instructions: Gastroenteritis (ED) Prescriptions: New dicyclomine 20 mg tablet 20 mg PO BID Qty: 10 0RF metoclopramide HCl [Reglan] 10 mg tablet 10 mg PO Q6H PRN (Reason: nausea and vomiting) Qty: 10 0RF No Action benzonatate 100 mg capsule 200 mg PO BID Qty: 60 0RF pseudoephedrine HCl [Sudafed 12 Hour] 120 mg tablet extended release 120 mg PO Q12H Qty: 30 0RF Print Language: Bruneian
[2024-11-13] MEDS: Metoclopramide HCl 10 MG/2 ML VIAL IM (23:35)
[2024-11-13 23:41] LABS: MANUAL DIFF FLAG NO
[2024-11-13 23:43] LABS: Basophils Percent Auto 0.2 % (0-2); Hematocrit 44.6 % (42.0-52.0); Imm Gran Abs Auto 0.03 X10*3/uL (0.00-0.03); Imm Gran Pct Auto 0.3 % (0.0-0.4); Lymphocytes Absolute Auto 1.7 X10*3/uL (1.2-4.9); Lymphocytes Percent Auto 14.4 % (20-40); Mean Corpuscular HGB Conc 35.9 g/dl (31.0-36.0); Mean Corpuscular Hemoglobin 28.4 pg (27.0-33.0); Mean Corpuscular Volume 79.1 fL (80.0-98.0); Monocytes Absolute Auto 0.9 X10*3/uL (0.1-1.2); Monocytes Percent Auto 7.6 % (2-11); Neutrophils Percent Auto 77.5 % (45-73); Platelet Count 225 X10*3/uL (160-400); Red Blood Count 5.64 X10*6/uL (4.60-5.80); Red Cell Distribution Width 13.4 % (11.0-16.0); White Blood Count 11.7 X10*3/uL (4.8-10.8)
[2024-11-13 23:58] LABS: Alanine Aminotransferase 51 U/L (0-40); Albumin Level 5.4 g/dL (3.5-5.0); Alkaline Phosphatase 64 U/L (39-117); Anion Gap 18 (12-20); Aspartate Amino Transferase 70 U/L (5-37); Bilirubin Direct 0.4 mg/dL (0.0-0.5); Bilirubin Total 1.4 mg/dL (0.0-1.0); Blood Urea Nitrogen 17 mg/dL (9-16); Calcium 10.3 mg/dL (8.4-10.2); Carbon Dioxide 22 mmol/L (22-29); Chloride 103 mmol/L (96-108); Creatinine Clr Calc Pharmacy 98.8; Estimated Glomerular Filt Rate > 60; Glucose Random 116 mg/dL (60-115); Magnesium 1.8 mg/dL (1.6-2.6); Potassium 3.5 mmol/L (3.3-5.1); Sodium 139 mmol/L (135-145); Total Protein 8.1 g/dL (6.5-8.0)
[2024-11-14] MEDS: Lactated Ringers 1,000 ML 999 ML IV (00:11)
[2024-11-14 00:18] LABS: Influenza A PCR NEGATIVE (Negative); Influenza B PCR NEGATIVE (Negative); Resp Syncy Virus RNA Qual PCR NEGATIVE (Negative); SARS COV2 PCR INHOUSE NEGATIVE (Negative)
[2024-11-14 02:01] VITALS: BP 115/47; PULSE 80; RESP 20; TEMP 36.6; O2SAT 97
--- NOTE | 2024-11-14 02:56 | PC.NURSE ---
Late entry: Pt given gingeral for PO trial. Pt able to drink half and hold in without vomiting.
[2024-11-14 02:57] VITALS: BP 115/47; PULSE 80; RESP 20; TEMP 36.6; O2SAT 97
== END 2024-11-14 03:00 | disposition home or self-care (01) ==
PROVIDERS: Emergency Medicine; Emergency Provider Emergency Medicine
DX: K52.9 Noninfective gastroenteritis and colitis, unspecified (principal); R11.2 Nausea with vomiting, unspecified; Z03.818 Encounter for observation for suspected exposure to other biological agents ruled out
CPT/HCPCS: 0241U; 80048; 80076; 83735; 85025; 96360; 96361; 96372; 99284; J2765; J7120